=== PATIENT | male | born 1940 | race Caucasian/White ===

== ENCOUNTER 2019-01-14 04:27 | Inpatient (IN) ==
--- NOTE | 2019-01-14 04:38 | PROVIDER DOCUMENTATION ---
HPI-Neurological Disorder - General Chief Complaint: Weakness Stated Complaint: stroke like symptoms Time Seen by Provider: 01/14/19 04:35 Source: patient Allergies/Adverse Reactions: Patient Allergies Allergy/AdvReac Type Severity Reaction Status Date / Time No Known Allergies Allergy Verified 01/14/19 04:36 Home Medications: Home Medication List Medication Instructions Recorded Confirmed Last Taken Type Aspirin 1 tab PO DIRECTED 01/14/19 01/14/19 Unknown History Cetirizine HCl [Zyrtec] 1 tab PO DAILY 01/14/19 01/14/19 Unknown History Cholecalciferol (Vit D3) [Vitamin 1,000 unit PO DAILY 01/14/19 01/14/19 Unknown History D] Chromium Amino Acid Chelate 1,000 mcg PO DAILY 01/14/19 01/14/19 Unknown History [Chromium] Lisinopril 1 tab PO DAILY 01/14/19 01/14/19 Unknown History Metformin [Glucophage] 1 tab PO DAILY 01/14/19 01/14/19 Unknown History Ubidecarenone [Coenzyme Q-10] 1 tab PO DAILY 01/14/19 01/14/19 Unknown History - History of Present Illness-Neuro Nature of Presenting Problem: Patient is a 78 year old white male with history of diabetes who developed sudden generalized weakness tonight that last about 1 hour. Patient arrives by EMS asymptomatic with NIH stroke score of 0 and GCS of 15. Review of Systems - Adult - REVIEW OF SYSTEMS - ADULT Constitutional: reports: see HPIrome. denies: chills, fever Eyes: reports: no symptoms reported Ears, Nose, Mouth & Throat: reports: no symptoms reported Cardiovascular: denies: chest pain Respiratory: denies: shortness of breath Gastrointestinal: denies: abdominal pain, diarrhea, nausea, vomiting Genitourinary: denies: dysuria Musculoskeletal: reports: see HPI Integumentary: denies: rash Neurological: reports: see HPI Psychiatric: reports: anxiety Endocrine: reports: no symptoms reported Hematologic/Lymphatic: reports: no symptoms reported All Other Systems: Reviewed and Negative Past History - Adult - PAST MEDICAL HISTORY-ADULT Review of Records: reports: Nursing Assessment Review, Medications Reviewed, Social history reviewed & non-contributory. Major Childhood Illnesses: reports: denies history Cardiovascular: reports: denies history Respiratory: reports: denies history Gastrointestinal: reports: denies history Obstetrical/Gynecological: reports: denies history Genitourinary: reports: denies history Musculoskeletal: reports: denies history Neurological: reports: denies history Endocrine/Immune: reports: denies history Other Conditions: reports: denies history Physical Exam- Neurological - Physical Exam-Neuro Initial Vital Signs Reviewed: Yes General Appearance: alert, no apparent distress, other (GCS=15) Eye Exam: bilateral eye: normal inspection, PERRL, EOMI HENMT: normocephalic/atraumatic, moist mucous membranes Head Injury: no evidence of injury Neck: non-tender, full range of motion Respiratory: chest non-tender, lungs clear Cardiovascular: regular rate, rhythm Lymphatic: no adenopathy Peripheral Pulses: radial (R): 2+, radial (L): 2+ Extremity: normal range of motion, 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 Exam: normal hearing, normal speech Motor/Sensory: no motor deficit, no sensory deficit Neurologic: 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 maker II-XII nml as tested, grossly normal, no motor/sensory deficits Integumentary: normal color, normal turgor, warm/dry Psych/Mental Status: anxious - Glascow Coma Scale Best Eye Response: (4) open spontaneously Best Verbal Response: (5) oriented Best Motor Response: (6) obeys commands Total Glascow Score: 15 Progress - PLAN OF CARE/RESULTS Progress/Plan/Lab Results: Vital Signs - 8 hr 01/14/19 04:29 01/14/19 04:47 Temperature 98 F Pulse Rate 94 H 69 Respiratory Rate 14 19 Blood Pressure 175/95 192/97 O2 Sat by Pulse Oximetry 99 99 Laboratory Results - last 24 hr 01/14/19 04:52 POC Glucose 181 H Orders Category Date Time Status Cardiac Monitoring DIRECTED Care 01/14/19 04:35 Active Finger Stick Blood Sugar (ED) DIRECTED Care 01/14/19 04:35 Active Oxygen Therapy- ED Nursing DIRECTED Care 01/14/19 04:35 Active Saline Loc NOW Care 01/14/19 04:[address] HEAD W/O CONTRAST [CT] Stat Exams 01/14/19 04:35 Completed CBC WITH ELECTRONIC DIFF [HEME] Stat Lab 01/14/19 04:35 Ordered CBC WITH ELECTRONIC DIFF [HEME] Stat Lab 01/14/19 05:20 Results COMPREHENSIVE METABOLIC PANEL [CHEM] Stat Lab 01/14/19 05:20 Ordered COMPREHENSIVE METABOLIC PANEL [CHEM] Stat Lab 01/14/19 05:20 Received TROPONIN T Stat Lab 01/14/19 04:35 Ordered TROPONIN T Stat Lab 01/14/19 05:20 Received URINE DRUG SCREEN PL Stat Lab 01/14/19 06:39 Ordered URINE DRUG SCREEN PL Stat Lab 01/14/19 06:40 Received EKG [EKG] Stat Ther 01/14/19 04:35 Draft Result Diagrams: 01/14/19 05:20 01/14/19 05:20 - REASSESSMENT Reassessment #1 Time Reassessed: 08:40 Status: unchanged (ALERT, ORIENTED X 4. RIGHT DIRECTOR OF INSTRUCTION 3/5, CANT LIFT RIGHT HEEL OFF BED. VOLAR FLEXIION FEET INTACT) - CT/MRI 1 CT Study: Head Impression: Normal, See EMR Report - CHANGE OF SHIFT REPORT (ED Provider) 1 Report Given and Care Transferred to:: Dr. Jeffy Barclay Time of Transfer: 07:00 Items Pending: CT/MRI Results Departure - Departure Date of Disposition Decision: 01/14/19 Time of Disposition Decision: 09:50 DIAGNOSIS: CVA (cerebral vascular accident), Hyperglycemia due to type 2 diabetes mellitus Disposition: ADMITTED INPATIENT 09 Certified Medical Emergency: Emergent Condition: Stable Referrals and Follow-Ups: None,PCP [Primary Care Provider] - - Critical Care Note This patient required my direct & personal management of CC.: No Attestation - Physician/ WERNER Attestation Patient care was provided by Advanced Practice Provider:: No The physician spent face to face time with patient:: Yes Advanced Practice Provider documentation review:: Supervising physician onsite and consulted in the evaluation and care of this patient. The physician did have a face to face encounter with the patient. - NIH Stroke Scale NIH Type: Discharge Evaluation Level of Consciousness: 0-Alert LOC Questions (ask month and age): 0-Answers Both Correctly LOC Commands (ask to open & close eyes;make a fist, let go): 0-Obeys Both Co rrectly Best Gaze (horizontal eye movement): 0-Normal Visual (use finger movement, counting or visual threat): 0-No Visual Loss Facial Palsy (show teeth or raise eyebrows & close eyes tght: 0-Symmetrical Movement Motor Function-left arm: 0-Normal Motor Function-right arm: 1-Drift (MILD DRIFT ON RIGHT) Motor Function-left le-Normal Motor Function-right le-Some Effort Against [place] (WAK , BARLEY MOVE HEEL OFF BED) Limb Ataxia(bfzxri-qaog-bvecwx, or heel to francis): 0-No Ataxia Sensory(pin prick to face,arms,trunk,legs-compare side/side): 0-No Ataxia Best Language(name item/read sentence.Ex-Down to Earth): 0-No Aphasia Dysarthria(Pt read words or say words Ex.Mama,Tip-Top,Thanks: 0-Normal Articulation Extinction and Inattention: 0-Normal NIH Total Score: 3 Modified Natasha Score Criteria: 3-moderate disability Stroke tPA Guidelines - Inclusion Criteria for IV tPA Onset <3 hours ago *OR* 3-4.5 hours ago: No (UNKNOWN ONSET LAST NIGHT PRIOR 0300)
--- NOTE | 2019-01-14 05:34 | EKG Report ---
Test Performed on : 01/14/2019 04:49:45 AM Test Reason : weakness Blood Pressure : / mmHG Vent. Rate : 069 BPM Atrial Rate : 069 BPM P-R Int : 188 ms QRS Dur : 086 ms QT Int : 402 ms P-R-T Axes : 024 002 021 degrees QTc Int : 430 ms Normal sinus rhythm. Normal ECG No previous ECGs available Unconfirmed Result
--- NOTE | 2019-01-14 05:38 | Diag Imaging Result Doc PS360 ---
EXAM: CT HEAD W/O CONTRAST HISTORY: sudden weakness, now gone TECHNIQUE: CT head without contrast COMPARISON: None. FINDINGS: No parenchymal hemorrhage. No epidural or subdural hematoma. No subarachnoid hemorrhage. No mass identified on this noncontrasted exam. Ventricular prominence with mild atrophy.. No sinus opacification. IMPRESSION: No hemorrhage. No acute abnormality.. This exam was performed using automated exposure control, adjustment of mA or kV according to patient size, and/or use of iterative reconstruction technique. Electronically signed by Edwar Szymanski 01/14/2019 5:36 AM
[2019-01-14 06:51] LABS: AGAP 10; BUN 20 mg/dL (8-22); CHLORIDE 106 mmol/L (98-107); COSMO 282; CREATININE 1.1 mg/dL (0.7-1.2); GLUCOSE 195 mg/dL (70-104); POTASSIUM 4.4 mmol/L (3.5-5.1); SODIUM 137 mmol/L (136-145); TCO2 21 mmol/L (25-35)
[2019-01-14 06:52] LABS: ALBUMIN 4.2 g/dL (3.5-5.0); ALKALINE PHOSPHATASE 73 U/L (32-122); CALCIUM 9.4 mg/dL (8.8-10.2); GOT 18 U/L (10-34); TOTAL PROTEIN 7.4 g/dL (6.3-8.3)
[2019-01-14 06:53] LABS: GPT 23 U/L (10-44)
[2019-01-14 06:55] LABS: WBC 8.92 X1000 (4.8-10.8)
[2019-01-14 06:56] LABS: HEMATOCRIT 43.7 % (42.0-52.0); HEMOGLOBIN 15.4 g/dL (14.0-18.0); LYMPH% 19.6 % (20.5-51.1); MCH 29.2 PG (27-31); MCHC 35.2 g/dL (33-37); MCV 82.9 FL (81-99); MPV 9.9 FL (7.4-10.4); NEUT% 72.9 % (42.2-75.2); PLT 212 X1000 (130-400); RBC 5.27 XMIL (4.7-6.1); RDW 12.9 % (11.5-14.5)
[2019-01-14 06:57] LABS: BASO# 0.02 X1000 (0.0-0.2); BASO% 0.2 % (0.0-0.8); EOS# 0.12 X1000 (0.0-0.7); EOS% 1.3 % (0.0-10.0); IMM GRAN# 0.01 X1000 (0.0-0.04); IMM GRAN% 0.1 % (0.0-0.5); LYMPH# 1.75 X1000 (1.2-3.4); MONO# 0.53 X1000 (0.11-0.59); MONO% 5.9 % (1.7-9.3); NEUT# 6.49 X1000 (1.4-6.5)
[2019-01-14 07:46] LABS: UR AMPHETAMINES QUAL NONE DETECTED (NONE DETECT); UR BARBITUATES QUAL NONE DETECTED (NONE DETECT); UR BENZODIAZEPIN QUAL NONE DETECTED (NONE DETECT); UR CANNABINOIDS QUAL NONE DETECTED (NONE DETECT); UR COCAINE QUAL NONE DETECTED (NONE DETECT); UR METHADONE QUAL NONE DETECTED (NONE DETECT); UR METHAMPHETAMINE QUAL NONE DETECTED (NONE DETECT); UR OPIATES QUAL NONE DETECTED (NONE DETECT); UR OXYCODONE QUAL NONE DETECTED (NONE DETECT); UR PCP QUAL NONE DETECTED (NONE DETECT); UR PROPOXYPHENE QUAL NONE DETECTED (NONE DETECT); UR TCA QUAL NONE DETECTED (NONE DETECT)
[2019-01-14] MEDS ORDERED: ASPIRIN PO ONE (08:16)
[2019-01-14] MEDS ORDERED: NS 1,000 ML IV ONE ×2 (08:16→12:25)
[2019-01-14 08:35] LABS: BILIRUBIN URINE NEGATIVE (NEGATIVE); BLOOD URINE 2+ (NEGATIVE); CLARITY CLEAR (CLEAR); COLOR YELLOW; GLUCOSE URINE NEGATIVE (NEGATIVE); KETONE URINE 1+(Small) mg/dL (NEGATIVE); SP GRAVITY URINE 1.025; URINE BACTERIA NEGATIVE /HFP; URINE CAST NONE SEEN /LPF; URINE CRYSTAL NONE SEEN /HPF; URINE EPITHELIAL CELLS <10 /HPF (<10); URINE SOURCE CLEAN CATCH; URINE WBC <10 /HPF (<10); URINE YEAST NONE SEEN /HPF
[2019-01-14 08:37] LABS: LEUKOCYTES URINE NEGATIVE (NEGATIVE); NITRITE URINE NEGATIVE (NEGATIVE); PROTEIN URINE 1+(30 mg/dL) mg/dL (NEGATIVE); UROBILINOGEN URINE NORMAL
[2019-01-14 09:22] LABS: URINE RBC 20-40 /HPF (<10)
[2019-01-14 09:22] LABS: CLARITY CLEAR (CLEAR); COLOR YELLOW; URINE CAST NONE SEEN /LPF; URINE CRYSTAL NONE SEEN /HPF; URINE EPITHELIAL CELLS <10 /HPF (<10); URINE RBC 20-40 /HPF (<10); URINE SOURCE CLEAN CATCH; URINE WBC <10 /HPF (<10); URINE YEAST NONE SEEN /HPF
[2019-01-14 09:23] LABS: BILIRUBIN URINE NEGATIVE (NEGATIVE); BLOOD URINE 4+ (NEGATIVE); GLUCOSE URINE NEGATIVE (NEGATIVE); KETONE URINE TRACE mg/dL (NEGATIVE); LEUKOCYTES URINE NEGATIVE (NEGATIVE); NITRITE URINE NEGATIVE (NEGATIVE); PROTEIN URINE TRACE mg/dL (NEGATIVE); UROBILINOGEN URINE NORMAL
[2019-01-14] MEDS ORDERED: APRESOLINE IV PRN (11:48)
[2019-01-14 12:07] LABS: CHOLESTEROL 203 mg/dL (0-200); HDL 34 mg/dL (35-55); LDL 124 mg/dL; TRIGLYCERIDES 223 mg/dL (39-160); VLDL 45 mg/dL
[2019-01-14] MEDS ORDERED: TYLENOL PO PRN (12:25)
[2019-01-14] MEDS: LOVENOX SUBQ SCH (13:14)
[2019-01-14] MEDS ORDERED: PNEUMOVAX 23 IM ONE (14:00)
--- NOTE | 2019-01-14 15:38 | HISTORY AND PHYSICAL ---
CHIEF COMPLAINT: Generalized weakness. HISTORY OF PRESENT ILLNESS: This is a 78-year-old gentleman with a prior history of diabetes mellitus and hypertension, who presents to the emergency room after having an episode of generalized weakness. He stated that he awoke feeling himself urinate in bed. He tried to get up out of bed. He said he was not able to raise himself up and at first he could not move arms or legs. He stated that in just a small amount of time he was able to move his left arm and hand, reach his phone call, and call his daughter who was in [place]. At this time he refused 911 transport so his son was called and when he got there to check on the patient, he attempted to sit him on the side of the bed to bring him to the emergency room and the patient was not able to hold himself up to sit on the side of the bed. He could move his left arm and leg. On his arrival to the ER, the patient was unable to sit up on the side of the bed. The patient states that he felt like his body would not work. He stated that his right arm nor right leg would do what he wanted it to do. He denied any syncope or dizziness, any chest pain or palpitations, any nausea, diaphoresis. He denies any prior episodes or any feeling ill or any weakness over the last few months. PAST MEDICAL HISTORY: 1. Diabetes mellitus. 2. Hypertension. PAST SURGICAL HISTORY: Denies. SOCIAL HISTORY: He lives with his daughter. He denies any tobacco or illicit drug use. He does drink alcohol on social occasions. ALLERGIES: No known drug allergies. HOME MEDICATIONS: 1. Aspirin 81 mg 3 times a week. 2. Zyrtec daily. 3. Chromium 1000 mcg daily. 4. Lisinopril 20 mg daily. 5. Metformin 500 mg daily. REVIEW OF SYSTEMS: Discussed with patient with pertinent positives stated in the HPI. He denied any syncope or dizziness, any chest pain or palpitations, shortness of breath, cough, fever, chills, any night sweats, recent weight loss or weight gain, any nausea, vomiting, diarrhea, constipation, black or bloody vomitus or stools, any hematuria, dysuria, frequency, urgency. He denied any change in vision, hearing, speech. PHYSICAL EXAMINATION: GENERAL: This is a 78-year-old gentleman who is sitting up in the stretcher in the emergency room, in no distress. VITAL SIGNS: Blood pressure is 172/89 with a heart rate of 70, respirations 20, temperature is 98.7 degrees oral, with room air saturations 97 to 99%. EYES: Pupils are equal, round, react to light. EOMs are intact. Sclerae are anicteric. HENT: Head is normocephalic, atraumatic. Mucous membranes are moist. NECK: Supple. Trachea midline. CARDIOVASCULAR: Regular rate and rhythm. S1 and S2 are appreciated. PULMONARY: Breath sounds are clear with no increased work of breathing noted. Chest rises and falls symmetrically with respiration. CHEST WALL: Nontender to palpation gastrointestinal. GASTROINTESTINAL: Abdomen is soft, nontender, nondistended, with bowel sounds in all 4 quadrants. NEUROLOGIC: He is alert and oriented. Speech is clear. Forehead is spared. He has equal nasal flaring. No tongue nor uvula deviation. Equal shoulder shrug. He has a slight right plantar drift. Hgphut-gw-hukh is 3/3 bilaterally, it is a little slower on the right. Muscle strength is 5/5 on left upper and lower, is 3 to 4/5 on right upper and lower. Business Solution Analyst, left is greater than right. Ylkc-jz-jzga is 3/3 bilaterally, slower on the right. He has no dysarthria. No aphasia. LABS: WBC is 8.9, with hemoglobin 15.4, hematocrit 43.7, and platelets of 212,000. Sodium 137, potassium 4.4, BUN 20, creatinine 1.1, with a glucose of 195. Troponin is negative. Urinalysis reveals 20 to 40 microscopic red blood cells, 4+ blood, less than 10 microscopic white blood cells and epithelial cells. Urine culture is pending. CT of the head reveals no hemorrhage. No epidural or subdural hematoma. No subarachnoid hemorrhage. No parenchymal hemorrhage. No mass identified on this noncontrast exam. Ventricular prominence with mild atrophy. No sinus opacification. ASSESSMENT AND PLAN: 1. Cerebrovascular accident. The patient will be admitted to the hospital. He will be placed on telemetry. Neuro checks every 4 hours. We will obtain a lipid profile. Continue aspirin 81 mg daily. We will start Lovenox. 2. History of hypertension. We will allow permissive hypertension for the next 24 to 48 hours, using hydralazine 10 mg IV p.r.n. systolic greater than 190 or diastolic greater than 90. In the meantime, we will identify his home medications and continue when appropriate. 3. Diabetes mellitus. Pattern blood glucose with sliding scale insulin. 4. We will consult physical therapy. We will obtain an echocardiogram, carotid Doppler, CBC, and BMP in the morning, urine culture. Further treatments pending hospital course. Dictated by VALERIE Moncada for Jeff Salter MD cc: VALERIE Moncada MD [facility] HOSPITALDeena
[2019-01-14] MEDS: HUMALOG (PARKWAY) SUBQ SCH (17:28)
--- NOTE | 2019-01-14 18:20 | Diag Imaging Result Doc PS360 ---
EXAM: MRI BRAIN W/WO CONTRAST INDICATION: CVA COMPARISON: CT head dated 01/14/2019 FINDINGS: There are a couple of small foci of restricted diffusion involving the cingulate gyrus on the left in the frontoparietal region consistent with small acute infarcts. No other acute infarct is appreciated. There is corresponding T2/FLAIR hyperintensity in these regions. There is suggestion of mild white matter microangiopathy. There is ventriculomegaly, likely due to brain atrophy. There is no discrete intracranial mass, mass effect, or intracranial hemorrhage. There is no evidence of abnormal intracranial enhancement. The surrounding soft tissues and bony structures are essentially unremarkable. IMPRESSION: A couple of small acute lacunar infarcts involving the cingulate gyrus on the left as described. Electronically signed by Milton Machuca 01/14/2019 6:17 PM
--- NOTE | 2019-01-14 18:29 | Diag Imaging Result Doc PS360 ---
EXAM: MRA BRAIN W/O CONTRAST INDICATION: CVA TECHNIQUE: 3-D [id number] axial images and 3-D MIPS were obtained. COMPARISON: None. FINDINGS: There is suggestion of mild focal stenosis involving the M1 segment of the left MCA. Flow is maintained to the distal branches. There is suggestion of a small focal outpouching involving the anterior communicating artery as it anastomosis with the anterior cerebral artery on the right. Although somewhat questionable, a tiny aneurysm cannot be excluded. If so it measures approximately 2.3 mm axially. If clinically warranted, a CTA of the head may help confirm it. No flow-limiting stenosis, cerebral aneurysm, or vascular malformation is identified involving the cerebral vasculature including the anterior, middle, and posterior cerebral arteries, otherwise. The distal ICAs and the basilar artery are patent. IMPRESSION: 1.Suggestion of mild focal stenosis involving the M1 segment of the left MCA. 2.Questionable 2.3 mm aneurysm arising from the anterior communicating artery. Please see above discussion. Electronically signed by Milton Machuca 01/14/2019 6:26 PM
--- NOTE | 2019-01-14 20:24 | HISTORY AND PHYSICAL ---
ADDENDUM: Patient seen and examined by myself. Full note dictated and discussed with nurse practitioner. Patient is a 78-year-old male who notes that he awoke in the middle of the night and was unable to move any of his extremities, however, quickly was able to move his left upper and lower extremity, and they are completely normal. His right upper and lower extremities still have some weakness. Denies any symptoms like this previously. We will admit patient to the hospital. Workup a stroke. We will follow his blood pressures, which currently are elevated at 175/95, and we will follow. cc: Jeff Salter MD
[2019-01-14] MEDS: LIPITOR PO SCH (21:52)
[2019-01-15] MEDS: HUMALOG (PARKWAY) SUBQ SCH ×5 (04:38→21:05)
[2019-01-15 07:03] LABS: AGAP 11; BUN 12 mg/dL (8-22); CALCIUM 8.9 mg/dL (8.8-10.2); CHLORIDE 108 mmol/L (98-107); COSMO 284; CREATININE 0.9 mg/dL (0.7-1.2); ESTIMATED GFR > 60; GLUCOSE 222 mg/dL (70-104); POTASSIUM 4.3 mmol/L (3.5-5.1); SODIUM 139 mmol/L (136-145); TCO2 20 mmol/L (25-35)
--- NOTE | 2019-01-15 07:25 | Extremity Venous Study ---
EXAM: Carotid Ultrasound HISTORY: ?CVA TECHNIQUE: Carotid Doppler ultrasound COMPARISON: None. FINDINGS: Right: Normal flow in the subclavian artery. No occlusion or stenosis in the common carotid artery. There is a moderate amount of plaque within the bulb. The peak systolic velocity in the internal carotid arteries 134 cm/s. The ICA/CCA ratio is 1.35. Antegrade vertebral flow. Left: Normal flow in the subclavian artery. No occlusion in the common carotid artery. There is a small amount of plaque in the mid and distal portion. Plaque is also present within the bulb. The peak systolic velocity in internal carotid artery is 96 cm/s. The ICA/CCA ratio 0.9. Antegrade vertebral flow. IMPRESSION: 1. Stenosis in the proximal right internal carotid artery approaching 60% 2. Stenosis in the proximal left internal carotid artery of between 40 and 50% 3. Stenosis in the left common carotid artery of less than 30% IMPRESSION: Electronically signed by Edwar Szymanski 01/15/2019 7:23 AM
[2019-01-15 07:28] LABS: BASO# 0.01 X1000 (0.0-0.2); BASO% 0.1 % (0.0-0.8); EOS# 0.15 X1000 (0.0-0.7); EOS% 2.1 % (0.0-10.0); HEMATOCRIT 41.1 % (42.0-52.0); HEMOGLOBIN 14.2 g/dL (14.0-18.0); LYMPH# 1.86 X1000 (1.2-3.4); LYMPH% 26.1 % (20.5-51.1); MCH 28.9 PG (27-31); MCHC 34.5 g/dL (33-37); MCV 83.5 FL (81-99); MONO# 0.42 X1000 (0.11-0.59); MONO% 5.9 % (1.7-9.3); NEUT# 4.69 X1000 (1.4-6.5); NEUT% 65.8 % (42.2-75.2); PLT 184 X1000 (130-400); RBC 4.92 XMIL (4.7-6.1); RDW 12.9 % (11.5-14.5); WBC 7.13 X1000 (4.8-10.8)
[2019-01-15] MEDS: ASPIRIN PO SCH (08:32)
[2019-01-15] MEDS: LOVENOX SUBQ SCH (12:29)
--- NOTE | 2019-01-15 13:26 | Diag Imaging Result Doc PS360 ---
EXAM: CT ANGIOGRAM HEAD HISTORY: ? cerebral aneurysm on MRA TECHNIQUE: CT angiogram head with MIP images. COMPARISON: Recent MRI FINDINGS: No aneurysm identified. Normal flow in each anterior and middle cerebral artery. Posterior communicating arteries. Possible decreased flow in the right posterior artery compared to the left. No occlusion. IMPRESSION: No aneurysm identified. This exam was performed using automated exposure control, adjustment of mA or kV according to patient size, and/or use of iterative reconstruction technique. Electronically signed by Edwar Szymanski 01/15/2019 1:23 PM
[2019-01-15] MEDS ORDERED: ROCEPHIN 1 GM in NS 50 ML IV SCH (16:30)
[2019-01-15] MEDS ORDERED: AYR NASAL SPRAY NAS PRN (16:30)
[2019-01-15] MEDS: ZOFRAN IV PRN (16:49)
--- NOTE | 2019-01-15 18:02 | ECHO REPORT ---
ORDER DATE: 01/15/2019 INDICATION: Stroke, hypertension. REQUESTING SERVICE: Hospitalists. M-MODE MEASUREMENTS: Left ventricle end diastole: 4.6. Left ventricle end systole: 2.8. Posterior wall: 1.2. Interventricular septum: 1.2. Left atrium: 3.8. Aortic diameter: 2.9. SUMMARY OF 2-DIMENSIONAL IMAGIN. Left ventricular function is normal with ejection fraction of 71%. No wall motion abnormality noted. 2. The right-sided chambers appear to be unremarkable. 3. The aortic valve looks grossly normal. Color flow mapping unremarkable. 4. The mitral valve is normal. Color flow mapping unremarkable. 5. Pulsed wave Doppler of mitral inflow showed reversal of the E/A ratio. The ratio is 0.7. 6. Tissue Doppler of septal and lateral mitral annulus averages 6 cm. 7. Pulmonary venous flow is normal. 8. There may be impaired left ventricular relaxation. 9. The tricuspid valve is grossly unremarkable. 10.Pulmonary pressure is probably well within normal range. 11.The pulmonic valve is normal. Color flow mapping unremarkable 12.There is no pericardial effusion. No mass, no thrombus. SUMMARY: This study shows: 1. Normal left ventricular systolic function. 2. No evidence of any significant valvular abnormality. 3. Pulmonary pressure probably normal. 4. Diastolic function is probably either normal or minimally impaired. Clinical correlation recommended. cc: MD Anni Nix CRNP
--- NOTE | 2019-01-15 20:13 | PROGRESS NOTE ---
DATE: 01/15/2019 SUBJECTIVE: Patient notes that he is feeling better, although the family notes that he is still not ambulating on his own, still requiring assistance. Patient does note that he is moving his right arm and leg better than initially. OBJECTIVE: Vital signs: Temperature 97.7, pulse 79, respiratory rate 18, BP 171/80. General: Patient is awake, alert, currently in no distress. HEENT: Normocephalic. Neck: Supple. Cardiovascular: Regular rate. Chest: Clear and nonlabored. Abdomen: Soft, nondistended. Extremities: Moves all extremities, although he still has 4/5 strength in right upper extremity, 3/5 right lower extremity. ASSESSMENT: 1. Acute cerebrovascular accident. MRI demonstrates lacunar infarct. 2. Carotid stenosis with 60% right carotid, 30% left carotid. 3. Hypertension. Blood pressures are currently elevated, but where we want them are in the 160 to 180 range 24 to 48 hours post stroke. We will continue to follow it, certainly will lower his blood pressure over the next 2 or 3 days. 4. Diabetes. PLAN: We will continue physical therapy today and consider rehab placement tomorrow. Discussed with patient that he will need to be on cholesterol medication. Needs to control his blood pressure and blood sugar. cc: Jeff Salter MD
[2019-01-15] MEDS: LIPITOR PO SCH (21:05)
[2019-01-16] MEDS: HUMALOG (PARKWAY) SUBQ SCH ×4 (06:27→21:17)
[2019-01-16] MEDS: GLUCOPHAGE PO SCH (08:13)
[2019-01-16] MEDS: ASPIRIN PO SCH (08:13)
[2019-01-16] MEDS ORDERED: PRINIVIL PO SCH (09:00)
--- NOTE | 2019-01-16 19:27 | PROGRESS NOTE ---
DATE: 01/16/2019 SUBJECTIVE: Patient notes that he is feeling a little bit better this morning. In fact, he actually was able to ambulate much further with a walker and assistance than he could yesterday. PHYSICAL: Vital Signs: Temperature 97.6, pulse 68, respiratory 18, BP 164/68. General: Patient is currently in no respiratory distress. He is awake, alert, very pleasant. HEENT: Normocephalic. Neck: Supple. Cardiovascular: Regular rate. Chest: Clear, nonlabored. Abdomen: Soft, nondistended. Extremities: Moves all extremities. Neurologic: No changes. ASSESSMENT: 1. Acute lacunar cerebrovascular accident. 2. Generalized weakness with right-sided lower extremity weakness, actually improving. 3. Carotid stenosis, stable. 4. Diabetes. PLAN: We will continue patient in the hospital. Continue to follow. We will adjust his blood pressure medications. Overall, he is improving. If he continues to improve, he certainly may be able to discharge home if he has help at home as opposed to going to inpatient rehab. cc: Jeff Salter MD
[2019-01-16] MEDS: ZOFRAN IV PRN (21:16)
[2019-01-16] MEDS: LIPITOR PO SCH (21:16)
[2019-01-16] MEDS ORDERED: NORCO-7.5 PO ONE (22:20)
[2019-01-17 02:50] LABS: BILIRUBIN URINE 1+ (NEGATIVE); BLOOD URINE 4+ (NEGATIVE); CLARITY VERY CLOUDY (CLEAR); COLOR AMBER; KETONE URINE 2+(Moderate) mg/dL (NEGATIVE); LEUKOCYTES URINE 1+ (NEGATIVE); NITRITE URINE POSITIVE (NEGATIVE); PH URINE 6.5; PROTEIN URINE 2+(100 mg/dL) mg/dL (NEGATIVE); URINE SOURCE CLEAN CATCH; UROBILINOGEN URINE 1 mg/dL
[2019-01-17 02:52] LABS: URINE BACTERIA 2+ /HFP; URINE EPITHELIAL CELLS <10 /HPF (<10); URINE RBC TNTC /HPF (<10)
[2019-01-17] MEDS: HUMALOG (PARKWAY) SUBQ SCH ×4 (06:37→22:13)
--- NOTE | 2019-01-17 11:55 | Diag Imaging Result Doc PS360 ---
EXAM: CT IVP (RENAL STONE SEARCH) 01/17/2019 HISTORY: ? stone/hematuria TECHNIQUE: CT urogram without contrast COMMENT: There is tree-in-bud opacity in the right middle lobe. There is some increased interstitial markings in the costophrenic sulci of the lower lobes. There are no previous studies available for comparison. There are no calcified gallstones demonstrated in the gallbladder. Liver is somewhat hypodense suggesting fatty change. There is no evidence of hydronephrosis or nephrolithiasis on the left. There is a 2 mm stone in the mid collecting system on the right side. There is a 2 to 3 mm calculus in the distal right ureter just above the sciatic notch. The appendix is normal in appearance. There is no evidence of bowel obstruction. The aorta is not distended. There is a hemangioma in T10. There are some degenerative disc changes in the lumbar spine particularly at the L3-4 and L4-5 levels. There is facet arthropathy on the left at L5-S1. No acute bony abnormalities are present. IMPRESSION: Right nephrolithiasis and distal ureterolithiasis with mild hydronephrosis. Electronically signed by Kenneth Willson 01/17/2019 11:53 AM
--- NOTE | 2019-01-17 12:42 | PROGRESS NOTE ---
DATE: 01/17/2019 SUBJECTIVE: Patient has had an eventful night last night with abdominal cramping, right-sided flank and lower quadrant posterior pain and some pelvic pain. He required [place]. Denies any fevers. PHYSICAL EXAMINATION: Vital Signs: Reviewed. Temperature 98.3 degrees, pulse 71, respiratory 18, blood pressure 161/88. General: Patient is awake, alert. He currently is in no respiratory distress. He is pleasant. HEENT: Normocephalic. Neck: Supple. Cardiovascular: Regular rate. Chest: Clear, nonlabored. Abdomen: Soft. Extremities: Moves all extremities. ASSESSMENT: 1. Urinary tract infection with hematuria. His UA initially had hematuria but leukocyte and nitrite, everything was negative. UA last night certainly has changed. We are going to place him on antibiotics and check a CT stone search. 2. Diabetes. 3. Hypertension. 4. Cerebrovascular accident, lacunar infarct. 5. Hypertension. PLAN: We will continue patient in the hospital, place him on antibiotics, pain control. Check CT, IVP to rule out stone. Continue physical therapy. cc: Jeff aSlter MD
[2019-01-17] MEDS: PRINIVIL PO SCH (12:48)
[2019-01-17] MEDS: ASPIRIN PO SCH (12:49)
[2019-01-17] MEDS: GLUCOPHAGE PO SCH ×2 (12:49→12:56)
[2019-01-17] MEDS: ZOSYN 3.375 GM in NS 50 ML IV SCH ×2 (12:55→17:58)
[2019-01-17] MEDS: LIPITOR PO SCH (22:14)
[2019-01-18] MEDS: ZOSYN 3.375 GM in NS 50 ML IV SCH ×4 (00:16→18:34)
[2019-01-18] MEDS: HUMALOG (PARKWAY) SUBQ SCH ×4 (07:30→21:29)
[2019-01-18] MEDS: FLOMAX PO SCH ×2 (09:39→21:29)
[2019-01-18] MEDS: ASPIRIN PO SCH (09:39)
[2019-01-18] MEDS: PRINIVIL PO SCH (09:39)
[2019-01-18] MEDS: GLUCOPHAGE PO SCH (09:39)
[2019-01-18 10:07] LABS: HEMATOCRIT 41.4 % (42.0-52.0); HEMOGLOBIN 14.7 g/dL (14.0-18.0); MCH 29.6 PG (27-31); MCHC 35.5 g/dL (33-37); MCV 83.3 FL (81-99); MPV 10.1 FL (7.4-10.4); RBC 4.97 XMIL (4.7-6.1); WBC 7.18 X1000 (4.8-10.8)
[2019-01-18 10:27] LABS: ALBUMIN 4.2 g/dL (3.5-5.0); CALCIUM 9.1 mg/dL (8.8-10.2); CREATININE 1.2 mg/dL (0.7-1.2); POTASSIUM 4.2 mmol/L (3.5-5.1); TOTAL BILIRUBIN 0.6 mg/dL (0.20-1.00); TOTAL PROTEIN 6.9 g/dL (6.3-8.3)
--- NOTE | 2019-01-18 13:18 | PROGRESS NOTE ---
DATE: 01/18/2019 SUBJECTIVE: The patient notes that his pain is better controlled. Still having difficulty urinating at times. Denies any fevers or chills. Thankfully, the tingling and weakness in his right foot are actually improving. PHYSICAL EXAMINATION: Temperature 97.7, pulse 72, respiratory rate 18, BP 133/73. General: Patient is awake and alert. He is lying in the bed. He is in no distress. HEENT: Normocephalic. Neck: Supple. Cardiovascular: Regular rate. Neurologic: No focal changes. He is improving some on his right lower extremity weakness but no worsening and no right upper extremity weakness currently. Respiratory: No wheezing, nonlabored. Abdomen: Soft, nondistended, nontender. No flank pain currently. Extremities: Moves left upper and lower extremities well. Right upper extremity with good strength. Right lower extremity improving, although still some appreciable weakness. No edema. Neurologic: He is awake, alert, oriented. He is in no respiratory distress. ASSESSMENT: 1. A 2-3 mm right renal stone with mild hydronephrosis. 2. Carotid disease with 60% right and 30% left. 3. Acute cerebrovascular accident with right lower extremity weakness, improving. 4. Probable urinary tract infection, on antibiotics. Culture pending. 5. Diabetes. Blood sugars are stable for now from 150 to 200. 6. Hypertension. Blood pressure is improved today at 133/72. PLAN: We will continue patient in the hospital. Continue to follow his renal stone. Hopefully, he can pass this. We will place him on Flomax. Further orders as needed. The patient most likely will need to transition to rehab over the next 1 to 2 days, depending on his renal stone. cc: Jeff Salter MD
[2019-01-18] MEDS: LIPITOR PO SCH (21:29)
[2019-01-19] MEDS: ZOSYN 3.375 GM in NS 50 ML IV SCH ×4 (00:21→17:25)
[2019-01-19] MEDS: HUMALOG (PARKWAY) SUBQ SCH ×4 (06:30→21:09)
[2019-01-19] MEDS: ASPIRIN PO SCH (08:39)
[2019-01-19] MEDS: PRINIVIL PO SCH (08:39)
[2019-01-19] MEDS: GLUCOPHAGE PO SCH (08:39)
[2019-01-19] MEDS: FLOMAX PO SCH ×2 (08:39→21:09)
--- NOTE | 2019-01-19 13:23 | PROGRESS NOTE ---
DATE: 01/19/2019 SUBJECTIVE: Patient reports no back pain. He is feeling better. Denies any fever or chills. He also reports the weakness in the right foot is still there, but getting better. OBJECTIVE: Vital Signs: Temperature 97.3, heart rate 63, respiratory rate 18, blood pressure 145/73, O2 saturation 95% on room air. General: This is a chronically ill- appearing, 78-year-old male, lying in bed, in no acute distress. HEENT: Head is normocephalic, atraumatic. Neck: No JVD noted. Nontender. No carotid bruits. No lymphadenopathy. No thyromegaly. Cardiovascular: S1, S2 heard. No murmurs, gallops, or rubs. Regular rate and rhythm. Respiratory: Clear bilaterally to auscultation. No work of breathing or using accessory muscles. Abdomen: Soft, nontender to palpation. No flank pain noted. Bowel sounds present. No organomegaly. Extremities: Peripheral pulses present in both legs. No clubbing, cyanosis, or edema noted. Neurologic: Right lower extremity weakness noted 3 to 4/5. The patient is awake alert oriented x3. No new neurological symptoms. LABORATORY DATA: There is no labs from today but from yesterday those were normal. ASSESSMENT AND PLAN: 1. Acute cerebrovascular accident with right lower extremity weakness improving. Physical Therapy and Occupational Therapy working with this patient. Plan is to send this patient to [facility]. 2. Urinary tract infection. Patient is on Zosyn even though the cultures are negative. Considering his history of kidney stones, we will continue with antibiotics while he is here. 3. Peripheral vascular disease. The patient was found to have a carotid artery stenosis with 60% obstruction on the right and 30% on the left. At this point, we will continue with medical management. 4. Mild right hydronephrosis. The patient has history of kidney stones and actually he was found out to have a 2 to 3 mm right renal stone that I think considering his symptoms he may have passed it. 5. Diabetes mellitus type 2. We will continue with sliding scale insulin. Accu-Chek before meals and also at bedtime. 6. Hypertension. Blood pressure is under control. We will continue with the same management. 7. Disposition. At this point, the patient is much more stable. Urinary tract infection is being treated and he is feeling much better. So, at this point, we are basically waiting for a rehab bed for him at [facility]. We will send him over once his insurance company approves it. cc: Sriram Lopez MD MTDD
[2019-01-19] MEDS: LIPITOR PO SCH (21:09)
[2019-01-20] MEDS: ZOSYN 3.375 GM in NS 50 ML IV SCH ×2 (01:12→06:03)
[2019-01-20 06:13] VITALS: BP 142/73
[2019-01-20] MEDS: HUMALOG (PARKWAY) SUBQ SCH (06:48)
[2019-01-20] MEDS: ASPIRIN PO SCH (08:31)
[2019-01-20] MEDS: GLUCOPHAGE PO SCH (08:31)
[2019-01-20] MEDS: PRINIVIL PO SCH (08:31)
[2019-01-20] MEDS: FLOMAX PO SCH (08:31)
--- NOTE | 2019-01-20 11:04 | DISCHARGE SUMMARY ---
ADMISSION DATE: 01/14/2019 DISCHARGE DATE: 01/20/2019 PRIMARY CARE PHYSICIAN: Listed as none. ADMISSION DIAGNOSES: 1. Cerebrovascular accident. 2. History of hypertension. 3. Diabetes. DISCHARGE DIAGNOSES: 1. Acute cerebrovascular accident with right lower extremity weakness that is improving. 2. Urinary tract infection with urine culture showing no growth. 3. Peripheral vascular disease with carotid artery stenosis of 60% on right and 30% on the left. 4. Mild right hydronephrosis. 5. Diabetes type 2. 6. Hypertension. SUMMARY OF FINDINGS: This is a 78-year-old male who presented to the emergency room when he began having general weakness after he woke up and had urinated in the bed. When he tried to get up out of the bed, he was not able to raise himself up. At first, he could not move arms or legs. He stated that in just a small amount of time, he was able to move his left arm and hand to reach for his phone to call his daughter and his son was called as he refused 911. He attempted to sit up on the side of the bed to bring the patient to the emergency room but the son states that the patient was not able to hold himself up to sit on the side of the bed and he could move his left arm and leg. When he arrived to the ER, he was unable to sit up on the side of the bed. Jackson like his body would not work. States his right arm nor his right leg would do what he wanted it to do so. He had a CT of the head that showed no hemorrhage and no acute abnormality. We did a brain MRI that showed a couple of small acute lacunar infarcts involving the cingulate gyrus on the left. 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 We did a carotid Doppler study that showed stenosis in the proximal right internal carotid artery approaching 60%, stenosis in the proximal left internal carotid artery between 40 and 50%, stenosis in the left common carotid artery of less than 30%. Did an echocardiogram that showed an ejection fraction of 71% with normal left ventricular function. We did a head CTA that showed no aneurysm identified. We did a renal CT that showed an impression of right nephrolithiasis and distal urolithiasis with mild hydronephrosis. He has received physical therapy, occupational therapy, was treated for his UTI that again showed no growth in his culture but it is now felt that he can safely be discharged to rehab today to [facility]. DISCHARGE MEDICATIONS: Will include Tylenol 650 mg p.o. q.6 hours p.r.n., atorvastatin 40 mg p.o. at bedtime, lisinopril 40 mg p.o. daily, metformin 500 mg p.o. daily, tamsulosin 0.4 mg p.o. b.i.d., Tylenol PM one p.o. at bedtime p.r.n., aspirin 81 mg p.o. daily, cefdinir 300 mg p.o. b.i.d. for 7 days, Zyrtec 10 mg p.o. daily, vitamin D3 1000 units p.o. daily, chromium 1000 mcg p.o. daily, hydralazine 10 mg IV q.4 hours p.r.n., Zofran 4 mg IV q.4 hours p.r.n. FOLLOWUP: He will need to follow up and obtain a primary care physician upon his completion of rehab at [facility]. TIME SPENT: This is a 35 minute discharge. Dictated by VALERIE Neville for Sriram Lopez MD Addendum: Patient seen and examined by myself. Agree with VALERIE note. It reflects my assessment and plan. Patient is being discharged in stable condition to home. cc: VALERIE Neville MD [facility]
== END 2019-01-20 12:18 | DRG 65 ==
LOC: P.ED 04:27 → SUATTDRO 04:28 → P.MEDSURG 04:28
PROVIDERS: ATTEND Internal Medicine
CPT/HCPCS: 70450; 70496; 70544; 70553; 74176; 80048; 80053; 80061; 80104; 80301; 80305; 80307; 80320; 81001; 82055; 82948; 83735; 84484; 85025; 85027; 87088; 93005; 93306; 93880; 97162; 97165; 97530; 97535; 99285; A9270; A9579; G0431; G0434; G0477; G0480; G6040; J0696; J1650; J1815; J2405; J2543; J7030; Q9967; XXXXX